=== PATIENT | female | born 1960 | race Caucasian/White ===

== ENCOUNTER 2021-01-28 08:09 | Emergency (ER) | payer OTHER ==
[~2021-01-28] VITALS: Ht 162.6 cm; Wt 75.8 kg
[2021-01-28] MEDS ORDERED: LISINOPRIL-HCT1 EAC1 PO (08:18)
[2021-01-28] MEDS ORDERED: GABAPENTIN600 M1 PO (08:18)
[2021-01-28] MEDS ORDERED: REMERON 30 MG T30 M1 PO (08:19)
[2021-01-28] MEDS ORDERED: MOBIC7.5 MG PO (08:19)
[2021-01-28] MEDS ORDERED: ESTRADIOL NORETH PO (08:19)
[2021-01-28] MEDS ORDERED: B12 PO (08:20)
[2021-01-28] MEDS ORDERED: ALPRAZOLAM XR3 MG PO (08:20)
[2021-01-28] MEDS ORDERED: VIT C PO (08:20)
[2021-01-28] MEDS ORDERED: RED YEAST RICE600 MG PO (08:21)
[2021-01-28] MEDS ORDERED: D3 PO (08:21)
[2021-01-28 09:18] LABS: ABSOLUTE NEUTROPHILS 4.3 thou/uL (1.4-8.2); BASOPHILS 0.3 % (0.0-2.0); EOSINOPHILS 1.1 % (0.0-3.0); HEMATOCRIT 38.9 % (37.0-47.0); HEMOGLOBIN 13.4 gm/dL (12.0-15.0); LYMPHOCYTES 29.3 % (24.0-44.0); MCH 31.2 pg (26.0-34.0); MCHC 34.4 g/dL (28.0-37.0); MCV 90.8 fL (80.0-100.0); MONOCYTES 7.6 % (1.0-8.0); PLATELET COUNT 194 thou/uL (150-400); POLYS 61.7 % (36.0-66.0); RBC 4.29 mil/uL (4.20-5.00); RDW 12.4 % (10.5-14.5)
[2021-01-28 09:21] LABS: ANION GAP 7 mmol/L (7-16); BUN 20 mg/dL (7-18); CALCIUM 9.4 mg/dL (8.5-10.1); CHLORIDE 95 mmol/L (98-107); CO2 26 mmol/L (21-32); CREATININE 1.2 mg/dL (0.6-1.0); GLUCOSE 106 mg/dL (74-106); POTASSIUM 3.4 mmol/L (3.5-5.1); SODIUM 128 mmol/L (136-145)
[2021-01-28 09:22] LABS: URINE BILIRUBIN NEGATIVE (Negative); URINE BLOOD NEGATIVE (Negative); URINE CLARITY CLEAR; URINE COLOR YELLOW; URINE GLUCOSE-RANDOM* NEGATIVE (Negative); URINE KETONES TRACE (Negative); URINE LEUKOCYTES-REFLEX NEGATIVE (Negative); URINE NITRITE-REFLEX NEGATIVE (Negative); URINE PROTEIN (DIPSTICK) NEGATIVE (Negative); URINE SPECIFIC GRAVITY <= 1.005 (1.005-1.035); URINE UROBILINOGEN 0.2 E.U./dl (0.2-1.0)
[2021-01-28 09:30] LABS: ALBUMIN 4.4 g/dL (3.4-5.0); DIRECT BILIRUBIN < 0.1 mg/dL (<0.1-0.2); SGOT 16 U/L (15-37); SGPT 22 U/L (14-59); TOTAL BILIRUBIN 0.3 mg/dL (0.2-1.0); TOTAL PROTEIN 7.8 g/dL (6.4-8.2); TROPONIN-I <0.06 ng/mL (<0.06)
[2021-01-28 10:20] VITALS: BP 153/79
--- NOTE | 2021-01-29 08:19 | EKG ---
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
== END 2021-01-28 10:29 | disposition home or self-care (01) ==
LOC: ER 08:09
PROVIDERS: Emergency Medicine
DX: R42 Dizziness and giddiness (principal); I10 Essential (primary) hypertension

== ENCOUNTER → 2021-04-08 | Outpatient (CLI) | payer OTHER ==
[~2021-04-08] MED LIST: ALPRAZOLAM XR3 MG PO; B12 PO; D3 PO; ESTRADIOL NORETH PO; GABAPENTIN600 M1 PO; LISINOPRIL-HCT1 EAC1 PO; MOBIC7.5 MG PO; RED YEAST RICE600 MG PO; REMERON 30 MG T30 M1 PO; VIT C PO
== END ==
LOC: CAT 15:56
PROVIDERS: ATTEND Specialist
DX: Z13.6 Encounter for screening for cardiovascular disorders (principal)